=== PATIENT | male | born 1985 | race African-American/Black ===

== ENCOUNTER 2021-01-13 08:44 | Day surgery (SDC) | payer SELFPAY ==
[2021-01-13] VITALS (7 sets, daily range): BP systolic 130–138; BP diastolic 79–89; PULSE 70–94; TEMP 98.5
[~2021-01-13] VITALS: Ht 188 cm; Wt 85.2 kg
--- NOTE | 2021-01-13 09:05 | NUR ---
Patient admitted to bay #4 via ambulation, using a steady gait. Patient is alert and oriented x3. Denies pain. Vitals obtained. Medications and HX reviewed at this time. Consent was reviewed and the patient verbalized understanding of procedure, signing the realted paperwork. IV was started in his L FA on first attempt with #20. LR is infusing without difficulty. PO medications admistered. Warm blanket provided, however the patient said he was warm and did not need it. Non-slip socks are on. Call thakkar instructions reviewed and the patient verbalized understanding; it is within reach. Side rails x2. Lung sounds are clear. Heart is in sinus rythm. Bowel sounds are present in x4 quads. First and last name + verified with patient and confirmed with the ID band.
--- NOTE | 2021-01-13 13:15 | NUR ---
1315- PATIENT BROUGHT BACK TO [facility] [place] [facility] VIA CART FROM PACU. LORENZO RN AT BEDSIDE TO GIVE REPORT. PLACED ON MONITORS, VITAL SIGNS STABLE. IV INFUSING WITHOUT DIFFICULTY. PATIENT DROWSY AT THIS TIME, RESPONDS TO VERBAL STIMULI. STATES JUST WANTS TO REST AT THIS TIME. LEFT FOOT COVERED IN PLASTER AND BANDAGE, CDI. WARM BLANKET PROVIDED, CALL SPRINGER WITHIN REACH. 1330- PATIENT COMPLAINS OF PAIN OF 6/10 TO LEFT FOOT. INSTRUCTED TO HAVE SOMETHING TO EAT AND DRINK PRIOR TO RECIEVING PAIN PILL. REQUESTS CRACKERS AND SODA. 1345- TOLERATING FOOD AND DRINK WITHOUT DIFFICULTY. PAIN MEDICATION ADMINISTERED. 1430- PATIENT STATES HE WOULD LIKE TO TRY AND USE RESTROOM AT THIS TIME. ASSISTED TO BATHROOM. UNABLE TO URINATE AT THIS TIME. GIVEN ANOTHER DRINK. MOTHER TO COME PICK PATIENT UP AND DRIVE HOME.
--- NOTE | 2021-01-13 13:20 | NUR ---
CHAYITO Webster took over discharing this patient after recieving report from CHAYITO Wheeler.
--- NOTE | 2021-01-13 15:00 | NUR ---
PATIENT REPORTS HE NEEDS TO USE RESTROOM AT THIS TIME. MOTHER AT BEDSIDE WITH CRUTCHES. PATIENT PROPERLY USES CRUTCHES TO AMBULATE TO BATHROOM. URINATES. IV REMOVED. PATIENT TO GET DRESSED AT THIS TIME. 1534- PATIENT BROUGHT DOWN TO LOBBY VIA WHEEL CHAIR. PLACED IN MOTHERS VEHICLE TO DRIVE HOME. ALL BELONGINGS IN HAND. ALL SAFETY MAINTAINED.
== END 2021-01-13 15:34 | disposition home or self-care (01) ==
LOC: SDCO 08:44
DX: M76.62 Achilles tendinitis, left leg (principal); M92.62 Juvenile osteochondrosis of tarsus, left ankle; M67.874 Other specified disorders of tendon, left ankle and foot; F17.200 Nicotine dependence, unspecified, uncomplicated
CPT/HCPCS: C1713; J0330; J0690; J1100; J1885; J2250; J2405; J2704; J2795; J3010; J7120